=== PATIENT | male | born 1945 ===

== ENCOUNTER 2024-12-12 07:45 | Outpatient (CLI) | payer OTHER | END 2024-12-12 07:46 | disposition home or self-care (01) | LOC: TOM 07:45 | PROVIDERS: ATTEND Internal Medicine Gastroenterology | DX: K56.609 Unspecified intestinal obstruction, unspecified as to partial versus complete obstruction (principal); K63.5 Polyp of colon; Z86.0100 Personal history of colon polyps, unspecified ==